=== PATIENT | female | born 1950 | race African-American/Black ===

== ENCOUNTER 2016-07-12 08:59 | Day surgery (SDC) | payer MEDICARE ==
--- NOTE | ~2016-07-12 | EGD ---
EGD REPORT [facility] [address] [place] [address] NAME: ANGEL CRUZ : [birth year] STATUS : REG [facility] PAT#: [id number] AGE: 65 ADM/REG DATE : 07/12/16 MR#: [id number] REPORT SERV DATE: 07/12/16 DICTATED BY: AKASH STEELE DATE: 07/12/16 REPORT STATUS : Draft [facility]ANS[facility]IBED BY: [facility] DATE: 07/12/16 [facility] Patient Name: Angel Cruz Date of : 1950 Attending MD: AKASH STEELE MD Procedure Date No Time: 07/12/2016 Procedure: Colonoscopy Indications: Surveillance: Personal history of adenomatous polyps on last colonoscopy > 5 years ago Referring MD: SCAR DUMONT Medicines: Propofol per Anesthesia Complications: No immediate complications. Procedure: Pre-Anesthesia Assessment: - ASA Grade Assessment: III - A patient with severe systemic disease. After I obtained informed consent, the scope was passed under direct vision. Throughout the procedure, the patient's blood pressure, pulse, and oxygen saturations were monitored continuously. The CF [id number] was introduced through the anus and advanced to the cecum, identified by appendiceal orifice and ileocecal valve. The colonoscopy was performed without difficulty. The patient tolerated the procedure well. The quality of the bowel preparation was good. Findings: The perianal and digital rectal examinations were normal. The rectum, descending colon, transverse colon, ascending colon and cecum appeared normal. Multiple small and large-mouthed diverticula were found in the recto-sigmoid colon, in the sigmoid colon, in the descending colon, in the transverse colon and in the ascending colon. Localized moderate inflammation characterized by altered vascularity, congestion (edema), erythema and loss of vascularity was found in the sigmoid colon. Biopsies were taken with a cold forceps for histology. Non-bleeding internal hemorrhoids were found during retroflexion and were mild, small and Grade I (internal hemorrhoids that do not prolapse). Impression: - The rectum, descending colon, transverse colon, ascending colon and cecum are normal. - Diverticulosis in the recto-sigmoid colon, in the sigmoid colon, in the descending colon, in the transverse colon and in the ascending colon. - Localized moderate inflammation was found in the sigmoid colon secondary to colitis. Biopsied. EGD REPORT [address] [address] NAME: ANGEL CRUZ : [birth year] STATUS : REG [facility]#: [id number] AGE: 65 ADM/REG DATE : 07/12/16 MR#: [id number] REPORT SERV DATE: 07/12/16 DICTATED BY: AKASH STEELE DATE: 07/12/16 REPORT STATUS : Draft TRANSCRIBED BY: [employer] DATE: 07/12/16 - Non-bleeding internal hemorrhoids. Recommendation: - Patient has a contact number available for emergencies. The signs and symptoms of potential delayed complications were discussed with the patient. Return to normal activities tomorrow. Written discharge instructions were provided to the patient. - Return to previous diet. - Continue present medications. - Await pathology results. - Repeat colonoscopy in 5 years for surveillance. - Return to my office as previously scheduled. - Discharge patient to home. Procedure Code(s): --- Professional --- 22391, Colonoscopy, flexible, proximal to splenic flexure; with biopsy, single or multiple Diagnosis Code(s): --- Professional --- K64.0, First degree hemorrhoids K57.30, Diverticulosis of large intestine without perforation or abscess without bleeding K52.9, Noninfective gastroenteritis and colitis, unspecified Z86.010, Personal history of colonic polyps CPT copyright 2013 [employer]. All rights reserved. The codes documented in this report are preliminary and upon brick layer review may be revised to meet current compliance requirements. Akash Steele MD AKASH STEELE MD 07/12/2016 11:23 AM This report has been signed electronically. Number of Addenda: 0 Note Initiated On: 07/12/2016 10:20 AM Scope Withdrawal Time 0 hours 16 minutes 58 seconds [id number] [place] [id number]
[~2016-07-12 08:59] MED LIST: ACIPHEX PO; ALEVE220 MG PO; ALLEGRA180 PO; ASAB PO; BENTYL20 PO; DULERA 100 MCG/13 GM INH; ESTRACE1 MG PO; KLONO5 PO; MIRALAX POWDER1 PKT PO; MULTIVITAMI1 PO; NASONEX NAS; NORV5 PO; PROVHFA INH; SINGULAIR1 PO; SULAR PO; SUPER B-C PO; SYNTHROID175 MCG PO; TAMOXIFEN20 M1 PO; ZOCOR20 PO; ZOCOR40 PO
[2016-11-11] MEDS ORDERED: SULAR PO (21:38)
[2016-11-11] MEDS ORDERED: ZOCOR40 PO (21:38)
[2016-11-11] MEDS ORDERED: TAMOXIFEN20 M1 PO (21:39)
[2016-11-11] MEDS ORDERED: EFFEXXR37 PO (21:40)
[2016-11-11] MEDS ORDERED: LEVOTHYROXIN150 MCG PO (21:41)
[2016-11-11] MEDS ORDERED: SINGULAIR1 PO (21:42)
[2016-11-11] MEDS ORDERED: ZYRTEC ALLGY10 MG PO (21:42)
[2016-11-11] MEDS ORDERED: ACIPHEX PO (21:42)
[2016-11-11] MEDS ORDERED: NASONEX NAS (21:43)
[2016-11-11] MEDS ORDERED: ZANTAC300 MG PO (21:46)
[2016-11-15] MEDS ORDERED: NORV5 (11:12)
[2016-11-15] MEDS ORDERED: LEVOTHYROXIN125 MCG PO ×2 (11:19→11:20)
[2016-11-15] MEDS ORDERED: COREG6 PO (11:24)
[2016-11-15] MEDS ORDERED: BENTYL20 PO (11:25)
[2016-11-15] MEDS ORDERED: PROTONIX PO (11:26)
[2016-11-15] MEDS ORDERED: NORCO1 TA1 PO (11:27)
== END 2016-07-12 23:59 | disposition home or self-care (01) ==
LOC: DMU 08:59
PROVIDERS: Internal Medicine Gastroenterology
PROC: 0DBN8ZX Excision of Sigmoid Colon, Via Natural or Artificial Opening Endoscopic, Diagnostic (ICD-10-PCS; principal; 2016-07-12 09:30)
DX: K52.9 Noninfective gastroenteritis and colitis, unspecified (principal); K57.30 Diverticulosis of large intestine without perforation or abscess without bleeding; K64.0 First degree hemorrhoids; K21.9 Gastro-esophageal reflux disease without esophagitis; K44.9 Diaphragmatic hernia without obstruction or gangrene; K57.92 Diverticulitis of intestine, part unspecified, without perforation or abscess without bleeding; I10 Essential (primary) hypertension; E03.9 Hypothyroidism, unspecified; E78.00 Pure hypercholesterolemia, unspecified; J45.909 Unspecified asthma, uncomplicated; M19.90 Unspecified osteoarthritis, unspecified site; F17.210 Nicotine dependence, cigarettes, uncomplicated; Z88.0 Allergy status to penicillin; Z91.013 Allergy to seafood; Z91.09 Other allergy status, other than to drugs and biological substances; Z90.49 Acquired absence of other specified parts of digestive tract; Z90.710 Acquired absence of both cervix and uterus; Z90.89 Acquired absence of other organs; Z96.1 Presence of intraocular lens; Z98.49 Cataract extraction status, unspecified eye; Z86.010 Personal history of colon polyps; Z85.3 Personal history of malignant neoplasm of breast; Z92.3 Personal history of irradiation; Z79.82 Long term (current) use of aspirin; Z79.899 Other long term (current) drug therapy; Z98.890 Other specified postprocedural states
CPT/HCPCS: 88305